=== PATIENT | male | born 1990 | race Caucasian/White ===

== ENCOUNTER 2021-12-25 13:28 | Emergency (ER) | payer OTHER, SELFPAY ==
[2021-12-25 13:47] VITALS: BP 138/86; PULSE 98; RESP 16; O2SAT 98; BMI 36.6
--- NOTE | 2021-12-25 14:57 | ED.EAR ---
HPI - Ear Problem General Chief complaint: Ear Problems Stated complaint: left ear clogged Time Seen by Provider: 12/25/21 14:10 Source: patient Mode of arrival: ambulatory History of Present Illness HPI Narrative: 31-year-old male with no significant past medical history presenting to the ED complaining of left ear feeling clogged since yesterday. Admits was swimming at the [place] yesterday prior to symptoms starting. reports mild decreased hearing. Denies fever, ear drainage, sore throat, cough MD Complaint: ear pain Location: left ear Duration: constant Related Data Allergies Allergy/AdvReac Type Severity Reaction Status Date / Time No Known Allergies Allergy Unverified 02/19/20 18:57 [No Known Allergies*] Review of Systems Review of Systems: Constitutional: No Fever, No Chills ENT/Mouth: + Ear Pain, No Nasal Congestion, No Sinus Pain, No Hoarseness, No sore throat, No Rhinorrhea, No Swallowing Difficulty Cardiovascular: No Chest Pain, No SOB Respiratory: No Cough, No Sputum Gastrointestinal: No Nausea, No Vomiting, No Diarrhea, No Constipation, No Abdominal pain Genitourinary: No Dysuria, No Urinary Frequency, Musculoskeletal: No joint pain, No Myalgias, No Joint Swelling Skin: No Skin Lesions, No rash Neuro: No Weakness Yes all other systems are reviewed and are negative PMFSH Social History Social History Advance Directives: No Advance Directives Information Provided: Yes Physical Exam Vital Signs: Vital Signs: Last Vital Signs Pulse 98 12/25/21 13:47 Resp 16 12/25/21 13:47 BP 138/86 12/25/21 13:47 Pulse Ox 98 12/25/21 13:47 O2 Del Method 12/25/21 13:47 BMI result Body Mass Index 36.6 Const: General: cooperative, healthy appearing and no acute distress Orientation/consciousness: patient oriented x3 Limitations: no limitations HEENT: Head: Yes normal to inspection and Yes atraumatic Ears: hearing grossly normal bilaterally, external ears normal, TM normal on the right, TM normal on the left, mastoids normal and Abnormal EAC present cerumen impaction on the left General nose exam: Normal external nose present Face and sinus: Yes normal facial exam Throat: Yes posterior oropharynx normal, Yes tonsils normal, Yes uvula midline and No uvular edema Eyes: General: appearance normal, both eyes and all related structures EOM: EOMs intact bilaterally Neck: Neck: Yes normal visual inspection and Yes no meningeal signs Resp: Effort & Inspection: normal respiratory effort and no respiratory distress Cardio: Rate: regular rate Heart sounds: S1 normal heart sound present and S2 normal heart sound present Skin: Rashes: no rashes Wounds: no wounds Neuro: General: patient oriented x3, tone normal and no meningeal signs Gait exam (Neuro): Normal gait present Extrem: General: Yes normal to inspection Procedures Ear Wax Removal Left Ear: Cerumenolytic Used: 5-10% Sodium Bicarb solution Results: Re-examined: cerumen removed completely TM Examination: TM(s) intact, normal appearance Ear Canal Exam: atraumatic Patient Tolerated Procedure: well Complications: no problems Technique: ear canal irrigated MDM - Ear MDM Narrative Medical decision making narrative: 31-year-old male with no significant past medical history presenting to the ED complaining of left ear feeling clogged since yesterday. On exam vital signs stable, NAD/nontoxic, cerumen impaction noted to left ear. Impaction removed completely with irrigation. TMs wnl bilaterally Differential Diagnosis Differential diagnosis: Likely otitis externa, otitis media, foreign body in ear and cerumen impaction Medical Records Attestation: I reviewed the patient's medical records. Lab Data Attestation: I reviewed the patient's lab results. Discharge Plan Discharge Clinical Impression: Cerumen impaction Patient Disposition: Home, Self-Care Additional Instructions: the earwax was drained from your ear today. your ear does not look infected. You should do soaks of 50% peroxide and 50% saline at home to soften your earwax. Follow up with your doctor. Referrals: Walt Gonzales [Physician] - Interventions: ED Discharge Assessment Last Done: 12/25/21 15:32 Discharge Date/Time: 12/25/21 15:33
== END 2021-12-25 15:33 | disposition home or self-care (01) ==
PROVIDERS: Emergency Provider Emergency Medicine
DX: H61.22 Impacted cerumen, left ear (principal)
CPT/HCPCS: 69209; 99282; 99283

== ENCOUNTER 2022-09-05 18:58 | Emergency (ER) | payer SELFPAY | END 2022-09-05 21:12 | disposition left against medical advice (07) | PROVIDERS: Emergency Provider Emergency Medicine | DX: I10 Essential (primary) hypertension (principal) ==